=== PATIENT | male | born 1945 | race Caucasian/White ===

== ENCOUNTER → 2022-10-22 | Outpatient (CLI) | payer OTHER | END | disposition home or self-care (01) | LOC: LAB SHORT 16:26 | DX: S86.911A Strain of unspecified muscle(s) and tendon(s) at lower leg level, right leg, initial encounter (principal) | CPT/HCPCS: 84550 ==

== ENCOUNTER 2025-02-08 11:31 | Day surgery (SDC) | payer OTHER ==
[~2025-02-08] VITALS: Ht 170.2 cm; Wt 67.3 kg
[2025-02-08] VITALS (15 sets, daily range): BP systolic 114–158; BP diastolic 67–93
[~2025-02-08 11:31] MED LIST: NAPR500 PO
[2025-02-08] MEDS ORDERED: Tranexamic Acid 100 ML IV SCH (11:54)
[2025-02-08] MEDS ORDERED: CeFAZolin Sodium 2,000 MG in NS 100 ML IV SCH ×2 (11:55→22:30)
[2025-02-08] MEDS ORDERED: Lactated Ringer's 1,000 ML IV SCH ×2 (11:55→14:30)
[2025-02-08] MEDS ORDERED: Ropivacaine 0.5% HCl/Pf 123.125 MG,EPINEPHrine HCL 0.25 MG,Ketorolac Tromethamine 15 MG... INFIL SCH (11:55)
[2025-02-08] MEDS ORDERED: Acetaminophen 500 MG Tab PO SCH ×2 (11:55→22:00)
[2025-02-08] MEDS ORDERED: OxyCODONE HCL 10 MG TABCR PO SCH (11:55)
[2025-02-08] MEDS ORDERED: Chlorhexidine Mouth Care 15 ML UDC MT SCH (11:55)
[2025-02-08] MEDS ORDERED: Vancomycin HCL 1,000 MG in NS 250 ML IV SCH (11:55)
[2025-02-08] MEDS ORDERED: CeFAZolin Sodium 2,000 MG VIAL ONE (12:26)
--- NOTE | 2025-02-08 13:31 | NUR ---
History, Chart, Medications and Allergies reviewed before start of procedure. Lungs clear T/O to Auscultation. Patient confirms NPO status and agrees with scheduled surgery. Pre-Op teaching done. Pt verbalizes understanding. Patient reports completing Chlorhexadine shower X2 prior to admission to hospital.
[2025-02-08] MEDS ORDERED: propofoL 50 ML IV ONE (13:57)
[2025-02-08] MEDS ORDERED: HYDROmorphone HCl/Pf 1MG SYR IV PRN ×2 (14:00→14:45)
[2025-02-08] MEDS ORDERED: DiphenhydrAMINE HCL 25 MG Cap PO PRN (14:00)
[2025-02-08] MEDS ORDERED: Bisacodyl 10 MG Supp PR PRN (14:00)
[2025-02-08] MEDS ORDERED: Ondansetron 8 MG SoluTab MM PRN (14:05)
[2025-02-08] MEDS ORDERED: Ondansetron HCl 2 MG / ML 2ML Vial IV PRN ×2 (14:05→14:40)
[2025-02-08] MEDS ORDERED: OxyCODONE HCL 5 MG TAB PO PRN ×2 (14:05)
[2025-02-08] MEDS ORDERED: Metoclopramide HCl 5MG / ML 2ML Vial IV PRN (14:05)
[2025-02-08] MEDS ORDERED: Magnesium Hydroxide Conc 10 ML UDC PO PRN (14:05)
[2025-02-08] MEDS ORDERED: FentaNYL Citrate 50 MCG/ML 2 ML Injection ONE (14:08)
[2025-02-08] MEDS ORDERED: Promethazine HCl 25 MG Tab PO PRN (14:10)
[2025-02-08] MEDS ORDERED: Dexamethasone Sod Phos 10 MG/ML 1ML VIAL ONE (14:25)
[2025-02-08] MEDS ORDERED: propofoL 20 ML IV ONE ×2 (14:28→16:18)
[2025-02-08] MEDS ORDERED: FentaNYL Citrate 50 MCG/ML 2 ML Injection IV PRN (14:40)
[2025-02-08] MEDS ORDERED: HydrALAZINE HCl 20 MG / ML 1ML Vial IV PRN (14:40)
[2025-02-08] MEDS ORDERED: Labetalol HCL 5 MG/ML 4ML Injection (Single Dose) IV PRN (14:45)
[2025-02-08] MEDS ORDERED: Ketorolac Tromethamine 15mg Vial IV SCH (18:00)
--- NOTE | 2025-02-08 18:04 | NUR ---
ARRIVAL TO UNIT AFTER RECEIVING REPORT FROM HEDGE FUND TRADER, PATIENT TRANSFERRED TO UNIT AT APPROX 1745. PATIENT ALERT AND ORIENTED X4. COMMUNICATES NEEDS EFFECTIVELY. VSS. ON ROOM AIR, SATs >90%. S/P R TKA W/ SPINAL - IS ABLE TO WIGGLE TOES, BUT REPORTS DECREASED SENSATION TO BLE AND NUMBNESS/TINGLING. DENIES PAIN. NO SHADOWING NOTED ON YESSICA WRAP. DENIES N/V - SMALL SNACKS AND WATER WITHIN REACH. IVF INFUSING PER EMAR. AT BEDSIDE. CALL LIGHT IN REACH.
[2025-02-08] MEDS ORDERED: Docusate Sodium 100 MG Cap PO SCH (21:00)
[2025-02-09] VITALS (9 sets, daily range): BP systolic 156–210; BP diastolic 83–99
[2025-02-09] MEDS ORDERED: Vancomycin HCL 1,000 MG in NS 250 ML IV SCH (01:00)
--- NOTE | 2025-02-09 05:45 | NUR ---
SORTING AND FOLDING SUPERVISOR SUMMARY PT IS POD 0 FOR R TKA. PT HAS DONE REALLY WELL POST OP. PAIN CONTROLLED WITH SCHEDULED TYLENOL AND TORADOL. PT GOT UP AT AROUND MIDNIGHT AND AMBULATED INTO THE BATHROOM USING THE FWW AND DID VERY WELL AND REPORTED MINIMAL PAIN WITH AMBULATION. PT HAS VOIDED MULTIPLE TIMES TONIGHT. IV ABX ORDERED. WILL CONTINUE TO MONITOR.
[2025-02-09 06:41] LABS: BASOPHILS ABSOLUTE AUTO 0.01 K/mm3 (0.00-0.23); BASOPHILS PERCENT AUTO 0 % (0-2); EOSINOPHILS PERCENT AUTO 0 % (0-6); Hematocrit 30.8 % (37.0-53.0); Hemoglobin 10.1 g/dL (13.5-17.5); IMMATURE GRAN ABSOLUTE AUTO 0.03 K/mm3 (0.00-0.10); IMMATURE GRAN PERCENT AUTO 0 % (0-1); LYMPHOCYTES ABSOLUTE AUTO 0.52 K/mm3 (0.84-5.20); LYMPHOCYTES PERCENT AUTO 8 % (21-46); MONOCYTES ABSOLUTE AUTO 0.59 K/mm3 (0.16-1.47); MONOCYTES PERCENT AUTO 9 % (4-13); Mean Corpuscular HGB 31.9 pg (26.0-34.0); Mean Corpuscular HGB Conc 32.8 g/dL (31.5-36.5); Mean Corpuscular Volume 97 fL (80-100); Mean Platelet Volume 9.7 fL (9.1-12.4); NEUTROPHILS ABSOLUTE AUTO 5.54 K/mm3 (1.96-9.15); NEUTROPHILS PERCENT AUTO 83 % (41-73); Platelet Count 209 K/mm3 (150-400); RDW Coefficient Variation 14.2 % (11.7-14.2); RDW Standard Deviation 50.2 fL (35.1-46.3); Red Blood Cell Count 3.17 M/mm3 (4.30-5.90); White Blood Cell Count 6.69 K/mm3 (4.00-11.30)
[2025-02-09 07:00] LABS: Bun/Creatinine Ratio 19.1 (12.0-20.0); Calcium, Blood 8.7 mg/dL (8.5-10.1); Creatinine, Blood 0.79 mg/dL (0.60-1.20); Magnesium, Blood 2.1 mg/dL (1.6-2.4); Potassium, Blood 4.1 mmol/L (3.5-5.5)
--- NOTE | 2025-02-09 07:28 | NUR ---
MD TIA ROBERTSON AT BEDSIDE THIS MORNING. DISCUSSED HTN - RECEIVED VERBAL ORDER TO CONSULT HOSPITALIST IF SBP IS NOT <150 IN APPROX 1-2 HOURS. PATIENT ASYMPTOMATIC OF HTN - SBP 160s-180s. NO HX OF HTN. DENIES PAIN. DRESSING TO R KNEE ASSESSED BY MD - DRESSING TO REMAIN IN PLACE UNTIL FOLLOW UP UNLESS DRAINAGE GREATER THAN A HALF DOLLAR. PHYSICAL THERAPY AT BEDSIDE FOR EVAL.
--- NOTE | 2025-02-09 08:19 | NUR ---
HTN PATIENTs SBP SUSTAINING 180s-200s. REMAINS ASYMPTOMATIC. DENIES PAIN. HOSPITALIST CONSULT PLACED - MD BARAJAS NOTIFIED OF CONSULT. MD TO REVIEW CHART AND PLACE ORDERS FOR BP MANAGEMENT.
--- NOTE | 2025-02-09 08:35 | NUR ---
CONSULT UPDATE THIS RN NOTIFIED BY MD BARAJAS THAT PATIENT IS AN [employer] PATIENT. MD CLIFFORD CONSULTED FOR HTN MANAGEMENT. MD BARAJAS PLACED ORDERS FOR NORVASC 5MG AND SCHEDULED HYDRALAZINE 25MG Q6. MD CLIFFORD NOTIFIED OF PRIOR ORDERS - RECEIVED ORDERS TO ADMINISTER SCHEDULED. MD TO ROUND ON PATIENT TODAY.
[2025-02-09] MEDS ORDERED: AmLODIPine Besylate 5 MG Tab PO SCH (09:00)
[2025-02-09] MEDS ORDERED: Aspirin 81 MG Chew PO SCH (09:00)
[2025-02-09] MEDS ORDERED: Trimethoprim/Sulfamethoxazole DS Tab PO SCH (09:00)
[2025-02-09] MEDS ORDERED: HydrALAZINE HCl 20 MG / ML 1ML Vial IV PRN (10:05)
[2025-02-09] MEDS ORDERED: TADA10TA PO (10:06)
[2025-02-09] MEDS ORDERED: FERSU300 PO (10:10)
--- NOTE | 2025-02-09 10:13 | NUR ---
HOME MED REC HOME MED REC VERIFIED AND COMPLETED WITH PATIENT AND HIS .
[2025-02-09] MEDS ORDERED: SULTRIDS PO (10:21)
[2025-02-09] MEDS ORDERED: ASPI81CH PO (10:22)
[2025-02-09] MEDS ORDERED: ONDA4ODT MM (10:23)
[2025-02-09] MEDS ORDERED: OXYC5 PO (10:25)
--- NOTE | 2025-02-09 11:46 | NUR ---
DARRIN ROUNDING FOR CONSULT. HTN IMPROVED - SBP 150s FOLLOWING NORVASC ADMINISTRATION PER EMAR THIS MORNING. REMAINS ASYMPTOMATIC. PER MD - PATIENT ABLE TO START PO NORVASC DAILY. MD TO UPDATE HOME MED REC FOR DC TODAY.
[2025-02-09] MEDS ORDERED: ACET500 PO (11:58)
[2025-02-09] MEDS ORDERED: AMLO5 PO (11:59)
[2025-02-09] MEDS ORDERED: HydrALAZINE HCl 25 MG Tab PO SCH (12:00)
--- NOTE | 2025-02-09 12:36 | NUR ---
DISCHARGE NOTE NO ACUTE CHANGES SINCE PREVIOUS NOTES. POD 1 R TKA. BP IMPROVED W/ PRESCRIBED NORVASC. PATIENT TO FOLLOW UP WITH PCP FOR FURTHER HTN MANAGEMENT. WORKED WITH PHYSICAL THERAPY THIS MORNING - AMBULATING SBA FWW GB. MEDIPORE AND ACEWRAP DRESSING TO R KNEE - C/D/I, NO SHADOWING. EXTRA DRESSING AND YESSICA WRAP PROVIDED FOR INCISION CARE AT HOME. PAIN MANAGED WITH PRESCRIBED THERAPY. TOLERATING PO INTAKE. VOIDING. IV REMOVED. WRITTEN AND VERBAL EDUCATION PROVIDED - BOTH PATIENT AND SPOUSE STATE UNDERSTANDING. PATIENT TRANSFERRED TO PERSONAL VEHICLE VIA AT APPROX 1230. PERSONAL BELONGINGS WITH PATIENT.
== END 2025-02-09 12:25 | disposition home or self-care (01) ==
LOC: SURS 11:31 → ORSCMMR 11:31 → ORD 14:00 → ORSCMMR 14:00 → SURS 17:35 → ORSCMMR 02-09 12:25
PROVIDERS: Orthopaedic Surgery
PROC: 0SRC0J9 Replacement of Right Knee Joint with Synthetic Substitute, Cemented, Open Approach (ICD-10-PCS; principal; 2025-02-08 14:00)
DX: M17.11 Unilateral primary osteoarthritis, right knee (principal)
CPT/HCPCS: 36415; 73560-RT; 80048; 83735; 85025; 94760; 97110; 97116; 97161; A9270; C1713; C1776; J0171; J0690; J0735; J1100; J1885; J2704; J2795; J3010; J3370; J7050; J7120

== ENCOUNTER 2025-05-03 09:12 | Day surgery (SDC) | payer OTHER ==
[~2025-05-03 09:12] MED LIST changes: +ACET500 PO; +AMLO5 PO; +ASPI81CH PO; +FERSU300 PO; +IRON PO; +ONDA4ODT MM; +OXYC5 PO; +SULTRIDS PO; +TADA10TA PO
[2025-05-03 09:22] VITALS: BP 145/82
[2025-05-03 11:13] LABS: BASOPHILS ABSOLUTE AUTO 0.03 K/mm3 (0.00-0.23); BASOPHILS PERCENT AUTO 1 % (0-2); EOSINOPHILS ABSOLUTE AUTO 0.11 K/mm3 (0.00-0.68); EOSINOPHILS PERCENT AUTO 5 % (0-6); Hematocrit 33.3 % (37.0-53.0); Hemoglobin 10.7 g/dL (13.5-17.5); IMMATURE GRAN ABSOLUTE AUTO 0.02 K/mm3 (0.00-0.10); IMMATURE GRAN PERCENT AUTO 1 % (0-1); LYMPHOCYTES ABSOLUTE AUTO 0.59 K/mm3 (0.84-5.20); LYMPHOCYTES PERCENT AUTO 26 % (21-46); MONOCYTES ABSOLUTE AUTO 0.41 K/mm3 (0.16-1.47); MONOCYTES PERCENT AUTO 18 % (4-13); Mean Corpuscular HGB Conc 32.1 g/dL (31.5-36.5); Mean Corpuscular Volume 98 fL (80-100); NEUTROPHILS ABSOLUTE AUTO 1.14 K/mm3 (1.96-9.15); NEUTROPHILS PERCENT AUTO 50 % (41-73); NRBC ABSOLUTE 0.00 K/mm3 (0.00-0.02); NRBC Auto 0.0 /100 WBC (0.0-0.2); Platelet Count 236 K/mm3 (150-400); RDW Coefficient Variation 14.6 % (11.7-14.2); RDW Standard Deviation 50.7 fL (35.1-46.3)
[2025-05-03 11:26] LABS: Albumin, Blood 3.2 g/dL (3.4-5.0); Anion Gap 8.0 mmol/L (3-11); Blood Urea Nitrogen 15.0 mg/dL (8-24); CO2, Blood 27.0 mmol/L (21-32); Calcium, Blood 8.8 mg/dL (8.5-10.1); Chloride, Blood 108.0 mmol/L (98-108); Creatinine, Blood 0.96 mg/dL (0.60-1.20); Glucose, Blood 101.0 mg/dL (70-99); Potassium, Blood 4.0 mmol/L (3.5-5.5); Sodium, Blood 139.0 mmol/L (136-145)
== END 2025-05-03 23:00 | disposition home or self-care (01) ==
LOC: ORSCMMR 09:12 → ORD 09:12 → ORSCMMR 23:00 → ORD 05-24 07:30
PROVIDERS: Orthopaedic Surgery
DX: M17.12 Unilateral primary osteoarthritis, left knee (principal); Z53.9 Procedure and treatment not carried out, unspecified reason; Z01.810 Encounter for preprocedural cardiovascular examination; Z01.812 Encounter for preprocedural laboratory examination; Z01.818 Encounter for other preprocedural examination
CPT/HCPCS: 36415; 80048; 82040; 85025

== ENCOUNTER 2025-05-24 06:45 | Day surgery (SDC) | payer OTHER ==
[~2025-05-24] VITALS: Ht 167.6 cm; Wt 69.0 kg
[2025-05-24] VITALS (13 sets, daily range): BP systolic 101–187; BP diastolic 58–95
[2025-05-24] MEDS ORDERED: Dexamethasone Sod Phos 10 MG/ML 1ML VIAL ONE (06:49)
[2025-05-24] MEDS ORDERED: Ondansetron HCl 2 MG / ML 2ML Vial ONE (06:49)
[2025-05-24] MEDS ORDERED: Phenylephrine HCl 100 MCG/ML-NS 10MLSYR (1MG/10ML) ONE (06:49)
[2025-05-24] MEDS ORDERED: Midazolam HCl 1MG / ML 2ML Vial ONE (06:50)
[2025-05-24] MEDS ORDERED: FentaNYL Citrate 50 MCG/ML 2 ML Injection ONE (06:50)
[2025-05-24] MEDS ORDERED: Chlorhexidine Mouth Care 15 ML UDC MT SCH (07:05)
[2025-05-24] MEDS ORDERED: Ropivacaine 0.5% HCl/Pf 123.125 MG,EPINEPHrine HCL 0.25 MG,Ketorolac Tromethamine 15 MG... INFIL SCH (07:05)
[2025-05-24] MEDS ORDERED: CeFAZolin Sodium 2,000 MG in NS 100 ML IV SCH ×2 (07:05→16:00)
[2025-05-24] MEDS ORDERED: Tranexamic Acid 100 ML IV SCH (07:05)
--- NOTE | 2025-05-24 07:31 | NUR ---
Ambulatory in Day Surgery WITH STEADY GAIT. History, Chart, Medications and Allergies reviewed before start of procedure. Pre-Op teaching done. Pt verbalizes understanding. Patient States Post-Procedure ride home has been arranged WITH SPOUSE. CELL PHONE GIVEN TO SPOUSE AT BEDSIDE. ALL OTHER BELONGINGS PLACED UNDER GURN. WEDDING BAND REMAINS IN PLACE, PT EDUCATED ON RISKS OF LEAVING IN PLACE, REFUSAL TO REMOVE SIGNED, TAPE PLACED OVER BAND.
[2025-05-24] MEDS ORDERED: Ondansetron HCl 2 MG / ML 2ML Vial IV PRN ×2 (07:45→08:55)
[2025-05-24] MEDS ORDERED: Magnesium Hydroxide Conc 10 ML UDC PO PRN (07:45)
[2025-05-24] MEDS ORDERED: Metoclopramide HCl 5MG / ML 2ML Vial IV PRN (07:45)
[2025-05-24] MEDS ORDERED: HYDROmorphone HCl/Pf 1MG SYR IV PRN ×3 (07:50→08:55)
[2025-05-24] MEDS ORDERED: ePHEDrine Sulfate 50 MG/ML 1ML Injection ONE (07:56)
[2025-05-24] MEDS ORDERED: FentaNYL Citrate 50 MCG/ML 2 ML Injection IV PRN ×2 (08:50→08:55)
[2025-05-24] MEDS ORDERED: Albuterol 2.5 MG/3 ML VIAL INH PRN (08:50)
[2025-05-24] MEDS ORDERED: HydrALAZINE HCl 20 MG / ML 1ML Vial IV PRN (08:55)
[2025-05-24] MEDS ORDERED: Tranexamic Acid 100 ML IV ONE (10:43)
--- NOTE | 2025-05-24 11:15 | NUR ---
POST OP ARRIVAL TO SURGICAL UNIT VIA HOSPITAL BED. ALERT, ORIENTED, & PLEASANT. ASSESSMENT CHARTED. DENIES PAIN. DENIES N/V SO SNACKS & DRINKS GIVEN. SPOUSE AT SIDE.
[2025-05-24] MEDS ORDERED: Ketorolac Tromethamine 15mg Vial IV SCH (12:00)
[2025-05-24] MEDS ORDERED: ACET500 PO (12:41)
[2025-05-24] MEDS ORDERED: FERSU300 PO (12:41)
[2025-05-24] MEDS ORDERED: LINE600 PO (12:42)
[2025-05-24] MEDS ORDERED: ASPI81CH PO (12:42)
[2025-05-24] MEDS ORDERED: OXYC5 PO (12:43)
--- NOTE | 2025-05-24 16:00 | NUR ---
DISCHARGE PT HAS WORKED w/ THERAPY. PAIN WELL CONTROLLED. EATING, DRINKING, & VOIDED x 1. POLAR PACK SENT w/ PT. ESCORTED OUT VIA W/C.
== END 2025-05-24 16:00 | disposition home or self-care (01) ==
LOC: ORSCMMR 06:45 → SURS 11:09 → ORSCMMR 16:00
PROVIDERS: Orthopaedic Surgery
PROC: 0SRD0J9 Replacement of Left Knee Joint with Synthetic Substitute, Cemented, Open Approach (ICD-10-PCS; principal; 2025-05-24 07:30)
DX: M17.12 Unilateral primary osteoarthritis, left knee (principal); Z96.651 Presence of right artificial knee joint
CPT/HCPCS: 73560-LT; 97110; 97116; 97162; A9270; C1713; C1776; J0165; J0166; J0690; J0735; J1100; J1885; J2250; J2371; J2405; J2704; J2795; J3010; J3373; J7050; J7120